=== PATIENT | male | born 1960 | race Caucasian/White ===

== ENCOUNTER → 2020-07-27 | Outpatient (CLI) | payer BC ==
[~2020-07-27] VITALS: Ht 193 cm; Wt 176.6 kg
[~2020-07-27] MED LIST: CASIRIVIMAB/IMDEVIMAB 2,400 MG/NS 250 ML IV ONE; EPINEPHrine INJECTION 1 MG/ML AMP IM PRN; diphenhydrAMINE 50 MG/ML INJ (BENADRYL) IV PRN
[2020-07-27 11:55] VITALS: BP 130/74
[2020-07-27 13:50] VITALS: BP 151/82
== END ==
LOC: INFUSION 11:45
PROVIDERS: ATTEND Family Medicine
DX: Z23 Encounter for immunization (principal); U07.1 COVID-19